=== PATIENT | female | born 1930 | race Hispanic/Latino ===

== ENCOUNTER 2020-09-16 11:48 | Outpatient (CLI) | payer MEDICARE ==
--- NOTE | 2020-09-16 13:39 | XRay Report ---
Right shoulder 3 views INDICATION: Right shoulder pain. 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 Signer Name: Bill Tanner MD Signed: 09/16/2020 1:34 PM Workstation Name: [id number]
== END 2020-09-16 11:49 | disposition home or self-care (01) ==
LOC: XRAY 11:48
PROVIDERS: ATTEND Orthopaedic Surgery
DX: M19.011 Primary osteoarthritis, right shoulder (principal)